=== PATIENT | male | born 1950 | race Caucasian/White ===

== ENCOUNTER → 2017-04-22 | Day surgery (SDC) | payer OTHER ==
[~2017-04-22] MED LIST: ACETAMINOPHEN 1000 MG/100 ML 100 ML IV ONE; BUPIVACAINE/EPINEPHRINE 0.5% 50 ML VIAL ONE; KETAMINE HCL 500 MG/10 ML VIAL IV ONE; MIDAZOLAM HCL 2 MG/2 ML VIAL ONE; ONDANSETRON HCL 4 MG/2 ML VIAL IV PUSH ONE; PROPOFOL 100 MG/10 ML INJ IV ONE; ceFAZolin INJ 1,000 MG VIAL ONE
[2017-04-22 09:17] LABS: INTERNATIONAL NORMALIZED RATIO 1.5 RATIO; PROTHROMBIN TIME - PATIENT 16.3 SEC (9.8-11.6)
--- NOTE | 2017-04-22 13:45 | TN ---
cc: MONICA WASHBURN M.D. DATE OF SURGERY: 04/22/2017 PREOPERATIVE DIAGNOSIS 1. Left inguinal hernia. 2. Questionable right recurrent inguinal hernia. 3. Questionable umbilical hernia. 4. 2 cm skin lesion in the mid chest. POSTOPERATIVE DIAGNOSIS 1. Left recurrent inguinal hernia. 2. Skin lesion mid chest, excised. PROCEDURE 1. Open repair of left inguinal hernia recurrence. 2. Removal of skin lesion mid chest utilizing elliptical incision, 5 x 2 cm, with double-layer closure. ANESTHESIA General. SURGEON Dr. Washburn. INDICATION This is a pleasant 67-year-old gentleman who has cirrhosis of the liver and thrombocytopenia. He had previous bilateral inguinal hernias repair. He has a subsequent recurrent one on the left side with the possibility of one on the right side. Plans were made for laparoscopic repair; however, intraoperatively, after discussion with anesthesia, after being placed under general anesthesia, Dr. Grier felt very uncomfortable with insufflation of the abdomen because of his physiologic status. For this reason the procedure done was just repair of the left inguinal hernia that was symptomatic to him. On exam he did not have an umbilical hernia that I could palpate under the general anesthesia. I could not really palpate a recurrent hernia on the right, but he has some occasional discomfort there. He still has the skin lesion in the mid chest wall DETAILS OF PROCEDURE After discussion with Dr. Grier it was decided to proceed with an open repair. After prepping and draping the abdomen, chest and groin we first make an oblique incision overlying the internal and external ring, dissect down through Cindy's fascia on the left side, dissecting down to Cindy's fascia and the external oblique aponeurosis. The previous mesh and suture can be palpated. The external oblique aponeurosis was then opened. Cord structures are noted. It appears that he has a recurrence along the medial edge just at the pubic tubercle. The mesh can be seen. A hernia defect can be seen and palpated and measures about a centimeter. We dissect the hernia sac off the mesh and the pubic tubercle and are able to reduce this completely. We then just take the mesh that is there and secure it back to the pubic tubercle to repair the recurrent defect. After this was done we then close the external oblique aponeurosis and skin is closed with 4-0 Vicryl. We then direct our attention to the sternal wound on the skin. An elliptical incision is made, 5 x 2 cm, after anesthetizing with Marcaine solution. The specimen is removed. It is marked with a stitch at the 12 o'clock position for orientation. We reapproximate the deep layer with 3-0 Vicryl and skin with 3-0 nylon interrupted suture. Sterile bandage is applied on two sites. The patient tolerated the procedure well, awakened in the operating room. Discussed with the and the patient about the events in the operating room and he fell very comfortable with the anesthesiologist's decision and my decision to not do a laparoscopic repair because of his physiologic deficits. Monica Washburn MD JDB/BT /1:17 PM /1:28 PM TODD
== END | disposition home or self-care (01) ==
LOC: ESDC 08:04
PROVIDERS: ATTEND Surgery
DX: K40.91 Unilateral inguinal hernia, without obstruction or gangrene, recurrent (principal); L72.0 Epidermal cyst; K74.60 Unspecified cirrhosis of liver; D69.6 Thrombocytopenia, unspecified
CPT/HCPCS: 00400; 00830; 11406; 36415; 49520; 85610; 88305; C1727; J0131; J0690; J2250; J2405; J3010